=== PATIENT | female | born 1965 | race Caucasian/White ===

== ENCOUNTER 2016-02-16 19:42 | Emergency (ER) | payer OTHER ==
[~2016-02-16] VITALS: Ht 175.3 cm; Wt 86.1 kg
[2016-02-16 21:38] VITALS: BP 126/80
== END 2016-02-16 21:39 | disposition home or self-care (01) ==
LOC: EME 19:42 → RME 19:42
DX: L76.22 Postprocedural hemorrhage of skin and subcutaneous tissue following other procedure (principal); Z88.6 Allergy status to analgesic agent
CPT/HCPCS: 99281; 99284